=== PATIENT | female | born 1965 | race Caucasian/White ===

== ENCOUNTER 2022-05-11 18:30 | Emergency (ER) | payer OTHER, SELFPAY ==
[~2022-05-11] VITALS: Ht 160 cm; Wt 78.4 kg
[2022-05-11] MEDS ORDERED: PROPARACAINE 0.5% OPHTH SOL 15ML OS ONE (23:00)
[2022-05-11] MEDS ORDERED: FLUORESCEIN OPHTH 1 MG STRIP OS ONE (23:00)
[2022-05-11] MEDS ORDERED: CIPROFLOXACIN 0.3% OPHTH SOLN 2.5ML OS ONE (23:45)
[2022-05-12] MEDS ORDERED: MOXI0.5S OS (00:23)
[2022-05-12 00:40] VITALS: BP 143/77
== END 2022-05-12 00:41 | disposition home or self-care (01) ==
LOC: M ED 18:30
DX: H10.32 Unspecified acute conjunctivitis, left eye (principal)